=== PATIENT | male | born 1935 ===

== ENCOUNTER 2016-09-21 19:20 | Emergency (ER) | payer MEDICARE ==
[2016-09-21 19:21] VITALS: BMI 29.2
[2016-09-21 19:36] VITALS: BP 184/82; PULSE 68; RESP 18; TEMP 98.2; O2SAT 100
[2016-09-21] MEDS ORDERED: Iohexol 240 (50 ml) PO STA (20:57)
[2016-09-21] MEDS ORDERED: Sodium Chloride 0.9% 1,000 ML IV STA (20:58)
--- NOTE | 2016-09-21 21:09 | ED PDOC ---
HPI: Abdomen Time Seen by Provider: 09/21/16 20:45 Chief Complaint (Nursing): GI Problem Chief Complaint (Provider): abdominal pain/constipation History Per: Patient, Family (80 y/o male h/o DM/HTN/Pacemaker for arrythmia last year here with constipation x 3 days associated with lower abdominal pain. Denies any vomiting/fevers/chills. Has tried fleet enema without relief. Has h/o appendectomy/cholecystectomy/sx for gastric ulcer in past. ) Past Medical History Reviewed: Historical Data, Nursing Documentation, Vital Signs Vital Signs: Last Vital Signs Temp 98.2 F 09/21/16 19:32 Pulse 68 09/21/16 19:32 Resp 18 09/21/16 19:32 BP 184/82 H 09/21/16 19:32 Pulse Ox 100 09/22/16 02:26 - Medical History PMH: Anemia, Anxiety, Depression, Gastritis, HTN, Hypercholesterolemia Denies: Bronchitis, HIV, Chronic Kidney Disease - Surgical History Surgical History: Appendectomy, Cholecystectomy - Family History Family History: States: Unknown Family Hx - Home Medications Home Medications: Ambulatory Orders Medication Instructions Recorded Clonazepam [Klonopin] 2 mg PO DAILY 03/13/16 Olmesartan/Hydrochlorothiazide 03/13/16 [Benicar Hct 40-25 mg Tablet] [place]-3 Fatty Acids [[place]-3] 1 gm PO BID 03/13/16 Omeprazole 20 mg PO DAILY 03/13/16 metFORMIN [glucOPHAGE] 250 mg PO BID 03/13/16 Aspirin [Ecotrin] 81 mg PO DAILY #0 tabec 03/15/16 Docusate [Colace] 100 mg PO BID #20 cap 09/22/16 - Allergies Allergies/Adverse Reactions: Allergies Allergy/AdvReac Type Severity Reaction Status Date / Time No Known Allergies Allergy Verified 03/12/16 22:33 Review of Systems ROS Statement: Except As Marked, All Systems Reviewed And Found Negative Gastrointestinal: Positive for: Abdominal Pain Physical Exam - Reviewed Nursing Documentation Reviewed: Yes Vital Signs Reviewed: Yes - Physical Exam Appears: Positive for: Well, Non-toxic, No Acute Distress Head Exam: Positive for: ATRAUMATIC, NORMAL INSPECTION, NORMOCEPHALIC Skin: Positive for: Normal Color, Warm, DRY Eye Exam: Positive for: EOMI, Normal appearance, PERRL ENT: Positive for: Normal ENT Inspection Neck: Positive for: Normal, Painless ROM Cardiovascular/Chest: Positive for: Regular Rate, Rhythm Respiratory: Positive for: CNT, Normal Breath Sounds Gastrointestinal/Abdominal: Positive for: Normal Exam, Bowel Sounds ( hyperactive bowel sounds), Soft, Tenderness (right lower quadrant tenderness noted.) Back: Positive for: Normal Inspection Extremity: Positive for: Normal ROM Neurologic/Psych: Positive for: Alert, Oriented - Laboratory Results Result Diagrams: 09/21/16 23:56 09/21/16 22:55 - ECG O2 Sat by Pulse Oximetry: 100 - Progress ED Course And Treament: CT ABD/PELVIS: IMPRESSION: 1. There is a mild fecal impaction of the rectum measuring 6.5 x 6.2 CM. 2. Constipation. 3. No evidence for diverticulitis as clinically questioned. Thank you for allowing us to participate in the care of your patient. Dictated and Authenticated by: Steve Weldon MD Patient states he had BM in ED after CT scan and feels improved. Disposition - Clinical Impression Clinical Impression: Constipation - Patient ED Disposition Is Patient to be Admitted: No - Disposition Disposition: Routine/Home Disposition Time: 02:58 Condition: FAIR Prescriptions: Docusate [Colace] 100 mg PO BID #20 cap Instructions: Constipation (GEN), High Fiber Diet (ED) Print Language: [place]
[2016-09-21 22:35] LABS: URINE COLOR YELLOW (YELLOW)
[2016-09-21 22:36] LABS: GRANULAR CAST 1 /lpf (0-1); RBC URINE 1 /hpf (0-3); URINE BACTERIA FEW (<OCC); URINE BILIRUBIN NEGATIVE (NEGATIVE); URINE BLOOD NEGATIVE (NEGATIVE); URINE GLUCOSE (UA) NEGATIVE (Normal); URINE KETONE NEGATIVE (NEGATIVE); URINE LEUKOCYTE ESTERASE NEGATIVE Leu/uL (Negative); URINE PROTEIN 100 mg/dL (NEGATIVE); URINE UROBILINOGEN 0.2 mg/dL (0.2-1.0); WBC URINE 1 /hpf (0-5)
[2016-09-21 23:08] LABS: ALB/GLOB RATIO 1.1 (1.0-2.1); ALKALINE PHOSPHATASE 75 U/L (38-126); ALT/SGPT 64 U/L (21-72); AST/SGOT 52 U/L (17-59); BILIRUBIN,TOTAL 0.4 mg/dl (0.2-1.3); CALCIUM 9.4 mg/dL (8.4-10.2); CARBON DIOXIDE 20 mmol/L (22-30); CHLORIDE 108 mmol/L (98-107); GFR AFRICAN-AMERICAN > 60; GLUCOSE,RANDOM 100 mg/dL (75-110); LIPASE 42 U/L (23-300); POTASSIUM 4.9 MMOL/L (3.6-5.0); SODIUM 144 mmol/l (132-148); TOTAL PROTEIN 7.3 G/DL (6.3-8.2)
[2016-09-21 23:16] LABS: BLOOD UREA NITROGEN 24 mg/dl (9-20)
[2016-09-22 00:03] LABS: BASO # 0.1 K/uL (0.0-0.2); BASO % 1.1 % (0.0-2.0); EOS # 0.2 K/uL (0.0-0.7); EOS % 2.2 % (0.0-4.0); HEMATOCRIT 32.5 % (35.0-51.0); LYMPH # 2.3 K/uL (1.0-4.3); LYMPH % 26.3 % (20.0-40.0); MEAN CELL VOLUME 101.4 fl (80.0-94.0); MEAN CORPUSCULAR HEMOGLOBIN 33.5 pg (27.0-31.0); MEAN PLATELET VOLUME 9.2 fl (7.2-11.7); MONO # 0.8 K/uL (0.0-0.8); MONO % 9.4 % (0.0-10.0); NEUT # 5.2 K/uL (1.8-7.0); NRBC % 0.1 % (0.0-0.0); RED CELL DISTRIBUTION WIDTH 12.7 % (11.5-14.5); WHITE BLOOD COUNT 8.6 K/uL (4.8-10.8)
[2016-09-22] MEDS ORDERED: Sodium Chloride 0.9% 50 ML IV ONE (00:25)
[2016-09-22] MEDS ORDERED: Iohexol 300 100 ML IJ ONE (00:25)
--- NOTE | 2016-09-22 01:52 | CT ---
EXAM: CT Abdomen and Pelvis With Intravenous Contrast CLINICAL HISTORY: 80 years old, male; Pain; Abdominal pain; Generalized; Additional info: Abd pain/constipation R/O diverticulitis TECHNIQUE: Axial computed tomography images of the abdomen and pelvis with intravenous contrast. This CT exam was performed using one or more of the following dose reduction techniques: automated exposure control, adjustment of the mA and/or kV according to patient size, and/or use of iterative reconstruction technique. Coronal and sagittal reformatted images were created and reviewed. CONTRAST: 95 mL of [id number] administered intravenously. COMPARISON: No relevant prior studies available. FINDINGS: Lower thorax: There is minimal bibasilar atelectasis. Pacemaker leads are noted in the right heart. ABDOMEN: Liver: There are no focal liver lesions present. Gallbladder and bile ducts: Gallbladder is not visualized and is presumably surgically absent or decompressed. No ductal dilation. Pancreas: Pancreas is atrophic. No ductal dilation. Spleen: The spleen is normal. Adrenals: No adrenal masses identified. Kidneys and ureters: At the there are bilateral renal cysts, largest on the right measuring 7.5 CM. There is no evidence of hydronephrosis. Stomach and bowel: There is a mild fecal impaction of the rectum measuring 6.5 x 6.2 CM. The stomach is normal. Colonic constipation is present. There is no evidence of intestinal obstruction. Appendix: No findings to suggest acute appendicitis. PELVIS: Bladder: Bladder is decompressed. Reproductive: The prostate gland and seminal vesicles are normal. ABDOMEN and PELVIS: Intraperitoneal space: There is no evidence of free intraperitoneal fluid. There is no free intraperitoneal air. Bones/joints: There are mild degenerative changes present. There is mild diffuse osteopenia. No acute fracture. No dislocation. Soft tissues: Unremarkable. Vasculature: The aorta demonstrates mild atherosclerotic calcification. No abdominal aortic aneurysm. Lymph nodes: There is no evidence of lymphadenopathy. IMPRESSION: 1. There is a mild fecal impaction of the rectum measuring 6.5 x 6.2 CM. 2. Constipation. 3. No evidence for diverticulitis as clinically questioned.
== END 2016-09-22 03:33 | disposition home or self-care (01) ==
LOC: H.ER 19:20
DX: K59.00 Constipation, unspecified (principal); K56.41 Fecal impaction; R10.84 Generalized abdominal pain
CPT/HCPCS: 74177; 80053; 81003; 83690; 85025; 87086; 99283; J7040; Q9966; Q9967

== ENCOUNTER 2017-11-15 09:01 | Inpatient (IN) | payer MEDICARE ==
[2017-11-15 09:02] VITALS: BMI 29.2
--- NOTE | 2017-11-15 09:48 | ED PDOC ---
HPI: General Adult Time Seen by Provider: 11/15/17 09:18 Chief Complaint (Nursing): Abnormal Skin Integrity Chief Complaint (Provider): Wound check History Per: Patient, EMS History/Exam Limitations: no limitations Onset/Duration Of Symptoms: Days (yesterday) Current Symptoms Are (Timing): Still Present Additional Complaint(s): 82 year old male presented to the ED via EMS complaining of redness that started at the surgical site yesterday and bleeding from the wound which began today. Patient reports he had open heart surgery on September 14 at [facility] and returned home last week. He does not remember the surgeon's name at [facility]. PCP: dAithya Amaya Past Medical History Reviewed: Historical Data, Nursing Documentation, Vital Signs Vital Signs: Last Vital Signs Temp 99.1 F 11/16/17 16:30 Pulse 71 11/16/17 16:30 Resp 16 11/16/17 16:30 BP 158/61 H 11/16/17 16:30 Pulse Ox 94 L 11/16/17 16:30 - Medical History PMH: Anemia, Anxiety, Depression, Gastritis, HTN, Hypercholesterolemia Denies: Bronchitis, HIV, Chronic Kidney Disease - Surgical History Surgical History: Appendectomy, Cholecystectomy - Family History Family History: States: Unknown Family Hx - Home Medications Home Medications: Ambulatory Orders Medication Instructions Recorded Amiodarone [Cordarone] 200 mg PO DAILY 11/15/17 Apixaban [Eliquis] 2.5 mg PO Q12 11/15/17 Aspirin [Ecotrin] 81 mg PO DAILY 11/15/17 Atorvastatin [Lipitor] 40 mg PO HS 11/15/17 Docusate [Colace] 100 mg PO BID 11/15/17 Epoetin Sh[place]ham [Procrit] 40,000 unit SC WE 11/15/17 Ferrous Sulfate [Feosol] 325 mg PO DAILY 11/15/17 Melatonin 10 mg PO HS 11/15/17 Metoprolol Tartrate [Lopressor] 50 mg PO Q12 11/15/17 Multivitamin [Multi-Vitamin Daily] 1 tab PO DAILY 11/15/17 [place]-3 Fatty Acids/Fish Oil 2 gm PO BID 11/15/17 [[place]-3 1,000 mg Softgel] Omeprazole 20 mg PO DAILY 11/15/17 Sennosides A and B [Senokot Tab] 8.6 mg PO BID 11/15/17 diltiaZEM CD [Cardizem CD] 120 mg PO DAILY 11/15/17 Vancomycin 1 GM [Vancomycin 1GM in 1 gm IVPB Q12 #30 bag 11/16/17 Normal Saline Addvantage] - Allergies Allergies/Adverse Reactions: Allergies Allergy/AdvReac Type Severity Reaction Status Date / Time No Known Allergies Allergy Verified 11/15/17 09:11 Review of Systems ROS Statement: Except As Marked, All Systems Reviewed And Found Negative Constitutional: Negative for: Fever Skin: Positive for: Other (Redness and bleeding from surgical site) Physical Exam - Reviewed Nursing Documentation Reviewed: Yes Vital Signs Reviewed: Yes - Physical Exam Appears: Positive for: Non-toxic, No Acute Distress Head Exam: Positive for: ATRAUMATIC, NORMAL INSPECTION, NORMOCEPHALIC Skin: Positive for: Normal Color, Warm, Dry Eye Exam: Positive for: Normal appearance Neck: Positive for: Normal, Painless ROM Cardiovascular/Chest: Positive for: Regular Rate, Rhythm. Negative for: Murmur Respiratory: Positive for: Normal Breath Sounds. Negative for: Wheezing, Respiratory Distress Extremity: Positive for: Normal ROM Neurologic/Psych: Positive for: Alert, Oriented. Negative for: Motor/Sensory Deficits Comments: CHEST: Midline surgical scar on chest with surrounding erythema and induration. Upper part of incision had serous drainage. (+) tenderness to palpation. (- ) active bleeding, (-) purulent drainage, (-) fluctuance - Laboratory Results Result Diagrams: 11/16/17 05:35 11/16/17 05:35 - ECG O2 Sat by Pulse Oximetry: 100 (RA) Pulse Ox Interpretation: Normal Medical Decision Making Medical Decision Making: Initial Impression: incisional cellulitis Initial Plan: CT chest CMP CBC PTT Prothrombin time Vancomycin 1gm Sodium chloride 0.9% 250mL IV Blood culture Accession No. : [id number] Patient Name / ID : PETER VILLEDA / [id number] Exam Date : 11/15/2017 11:26:32 ( Approved ) Study Comment : Sex / Age : M / 82Y Creator : Rebecca Lane MD Dictator : Rebecca Lane MD [employer] Executive : Thread Drawer : Rebecca Lane MD Approver2 : Report Date : 11/15/2017 12:38:28 My Comment : PROCEDURE: CT Chest with contrast HISTORY: Wound infection, cardiac bypass incision COMPARISON: None. TECHNIQUE: Contiguous axial images were obtained through the chest with intravenous contrast enhancement. Sagittal and coronal reconstructions were performed. IV contrast: 95 cc Omnipaque 300 Radiation dose (DLP): 171.75 mGy-cm. This CT exam was performed using one or more of the following dose reduction techniques: Automated exposure control, adjustment of the mA and/or kV according to patient size, and/or use of iterative reconstruction technique. FINDINGS: LUNGS: There is compressive atelectasis in the posterior lungs related to large pleural effusions, worse on the left. No focal consolidation. There are no endobronchial lesions. MEDIASTINUM: The aorta is not dilated. The heart is normal in size. No large pericardial effusion. No pathologic mediastinal or hilar lymphadenopathy. PLEURA: There are large bilateral pleural effusions with compressive atelectasis in the posterior lungs, worse on the left. No pneumothorax. BONES: No fracture. No destructive lesion. Within normal limits for the patient's age. UPPER ABDOMEN: Grossly unremarkable. OTHER FINDINGS: There are postsurgical changes of median sternotomy. There is subcutaneous edema and minimal fluid in the soft tissues anterior to the sternum without evidence for drainable fluid collection. There is mild anasarca. IMPRESSION: 1. Postsurgical changes of median sternotomy, subcutaneous edema, post- operative/postsurgical soft tissue anterior to the sternum and minimal fluid anterior to the sternum without evidence for drainable fluid collection or abscess. These findings could 4 within the spectrum of postoperative/ postsurgical changes however cellulitis can have similar appearance in the appropriate clinical setting. 2. Large bilateral pleural effusions with compressive atelectasis in the lungs, worse on the left. 10:54 Upon reevaluation, patient reports having chest pain. EKG and troponin ordered. Scribe Attestation: Documented by Wolf Elizabeth acting as a scribe for Leeann Fleming MD. Provider Scribe Attestation: All medical record entries made by the Scribe were at my direction and personally dictated by me. I have reviewed the chart and agree that the record accurately reflects my personal performance of the history, physical exam, medical decision making, and the department course for this patient. I have also personally directed, reviewed, and agree with the discharge instructions and disposition. Disposition - Clinical Impression Clinical Impression: Cellulitis of chest wall, Chest pain - Disposition Disposition Time: 13:47 Condition: STABLE - Pt Status Changed To: Hospital Disposition Of: Inpatient - Admit Certification Admit to Inpatient:: After my assessment, the patient will require hospitalization for at least two midnights. This is because of the severity of symptoms shown, intensity of services needed, and/or the medical risk in this patient being treated as an outpatient. - POA Present On Arrival: Surgical Site Infection
[2017-11-15] MEDS ORDERED: Vancomycin 1 g Inj ONE (09:51)
[2017-11-15 10:44] LABS: BASO # 0.1 K/uL (0.0-0.2); BASO % 0.6 % (0.0-2.0); EOS % 0.2 % (0.0-4.0); HEMOGLOBIN 10.3 g/dL (12.0-18.0); LYMPH # 1.5 K/uL (1.0-4.3); LYMPH % 12.1 % (20.0-40.0); MEAN CORPUSCULAR HEMOGLOBIN 30.2 pg (27.0-31.0); MEAN CORPUSCULAR HGB CONC 31.4 g/dL (33.0-37.0); NEUT # 9.8 K/uL (1.8-7.0); NEUT % 79.1 % (50.0-75.0); RBC 3.42 Mil/uL (4.40-5.90); RED CELL DISTRIBUTION WIDTH 20.1 % (11.5-14.5); WHITE BLOOD COUNT 12.4 K/uL (4.8-10.8)
[2017-11-15 11:10] LABS: ALB/GLOB RATIO 0.8 (1.0-2.1); CALCIUM 8.4 mg/dL (8.4-10.2); GFR AFRICAN-AMERICAN > 60; GFR NON-AFRICAN AMERICAN > 60
[2017-11-15 11:11] LABS: ALT/SGPT 106 U/L (21-72); AST/SGOT 130 U/L (17-59); BLOOD UREA NITROGEN 24 mg/dl (9-20)
[2017-11-15 11:11] LABS: INR 1.6 (0.9-1.2); PARTIAL THROMBOPLASTIN TIME 30.6 Seconds (25.6-37.1); PROTHROMBIN TIME 18.4 Seconds (9.8-13.1)
[2017-11-15] MEDS ORDERED: Iohexol 300 100 ML IJ ONE (11:15)
[2017-11-15] MEDS ORDERED: Sodium Chloride 0.9% 50 ML IV ONE (11:15)
--- NOTE | 2017-11-15 12:40 | CT ---
PROCEDURE: CT Chest with contrast HISTORY: Wound infection, cardiac bypass incision COMPARISON: None. TECHNIQUE: Contiguous axial images were obtained through the chest with intravenous contrast enhancement. Sagittal and coronal reconstructions were performed. IV contrast: 95 cc Omnipaque 300 Radiation dose (DLP): 171.75 mGy-cm. This CT exam was performed using one or more of the following dose reduction techniques: Automated exposure control, adjustment of the mA and/or kV according to patient size, and/or use of iterative reconstruction technique. FINDINGS: LUNGS: There is compressive atelectasis in the posterior lungs related to large pleural effusions, worse on the left. No focal consolidation. There are no endobronchial lesions. MEDIASTINUM: The aorta is not dilated. The heart is normal in size. No large pericardial effusion. No pathologic mediastinal or hilar lymphadenopathy. PLEURA: There are large bilateral pleural effusions with compressive atelectasis in the posterior lungs, worse on the left. No pneumothorax. BONES: No fracture. No destructive lesion. Within normal limits for the patient's age. UPPER ABDOMEN: Grossly unremarkable. OTHER FINDINGS: There are postsurgical changes of median sternotomy. There is subcutaneous edema and minimal fluid in the soft tissues anterior to the sternum without evidence for drainable fluid collection. There is mild anasarca. IMPRESSION: 1. Postsurgical changes of median sternotomy, subcutaneous edema, post- operative/postsurgical soft tissue anterior to the sternum and minimal fluid anterior to the sternum without evidence for drainable fluid collection or abscess. These findings could 4 within the spectrum of postoperative/ postsurgical changes however cellulitis can have similar appearance in the appropriate clinical setting. 2. Large bilateral pleural effusions with compressive atelectasis in the lungs, worse on the left.
--- NOTE | 2017-11-15 15:38 | CP.PCM.HP ---
History of Present Illness - History of Present Illness History of Present Illness: 82 yo male with history of CAD, HTN, HLD, DM2, Anxiety and Gastric Ulcer had recent CABG done at [facility] 2months ago. Surgical wound has been healing well until 2 days ago when and patient noted redness and tenderness on the upper border of mid-sternal surgical wound followed with serous drainage. Patient also complained of mid-sternal pain radiating to both shoulders and arms and back. Denied fever but admitted having chills. Also denied SOB, nausea or vomiting. Present on Admission - Present on Admission Any Indicators Present on Admission: No History of DVT/PE: No History of Uncontrolled Diabetes: No Urinary Catheter: No Decubitus Ulcer Present: No Review of Systems - Review of Systems All systems: reviewed and no additional remarkable complaints except (aside from those mentioned above, 12 point system review were negative by me) Past Patient History - Infectious Disease Hx of Infectious Diseases: None - Tetanus Immunizations Tetanus Immunization: Unknown - Past Medical History & Family History Past Medical History?: Yes - Past Social History Smoking Status: Former Smoker Alcohol: None Drugs: Denies Home Situation {Lives}: With Family - CARDIAC Hx Hypercholesterolemia: Yes Hx Hypertension: Yes - PULMONARY Hx Bronchitis: No - NEUROLOGICAL Hx Neurological Disorder: No - HEENT Hx HEENT Problems: No - RENAL Hx Chronic Kidney Disease: No - ENDOCRINE/METABOLIC Hx Endocrine Disorders: Yes Hx Diabetes Mellitus Type 2: Yes - HEMATOLOGICAL/ONCOLOGICAL Hx Anemia: Yes Hx Human Immunodeficiency Virus (HIV): No - INTEGUMENTARY Hx Dermatological Problems: No - MUSCULOSKELETAL/RHEUMATOLOGICAL Hx Falls: Yes - GASTROINTESTINAL Hx Gastritis: Yes - GENITOURINARY/GYNECOLOGICAL Hx Genitourinary Disorders: No - PSYCHIATRIC Hx Anxiety: Yes Hx Depression: Yes - SURGICAL HISTORY Hx Appendectomy: Yes Hx Cholecystectomy: Yes - ANESTHESIA Hx Anesthesia: Yes Hx Anesthesia Reactions: No Hx Malignant Hyperthermia: No Meds Allergies/Adverse Reactions: Allergies Allergy/AdvReac Type Severity Reaction Status Date / Time No Known Allergies Allergy Verified 11/15/17 09:11 Physical Exam - Constitutional Appears: No Acute Distress - Head Exam Head Exam: ATRAUMATIC - Eye Exam Eye Exam: absent: Scleral icterus - ENT Exam ENT Exam: Mucous Membranes Moist - Neck Exam Neck exam: Negative for: Meningismus - Respiratory Exam Respiratory Exam: Chest Wall Tenderness (upper border of mid-sternal surgical wound sorrounded with redness plus bloody-serous drainage). absent: Rales, Rhonchi, Wheezes, Respiratory Distress - Cardiovascular Exam Cardiovascular Exam: REGULAR RHYTHM, +S1, +S2 - GI/Abdominal Exam GI & Abdominal Exam: Soft. absent: Tenderness - Rectal Exam Rectal Exam: Deferred - Extremities Exam Extremities exam: Negative for: calf tenderness, pedal edema - Back Exam Back exam: absent: tenderness - Neurological Exam Neurological exam: Alert, Oriented x3 - Psychiatric Exam Psychiatric exam: Normal Affect - Skin Skin Exam: Dry, Intact Results - Vital Signs Recent Vital Signs: Last Vital Signs Temp 98.1 F 11/15/17 14:10 Pulse 79 11/15/17 14:47 Resp 19 11/15/17 14:47 BP 145/84 11/15/17 14:47 Pulse Ox 96 11/15/17 14:47 - Labs Result Diagrams: 11/15/17 10:38 11/15/17 10:38 Labs: Laboratory Results - last 24 hr 11/15/17 11/15/17 11/15/17 10:38 10:38 10:45 WBC 12.4 H D RBC 3.42 L Hgb 10.3 L Hct 32.8 L MCV 96.0 H D MCH 30.2 MCHC 31.4 L RDW 20.1 H Plt Count 164 MPV 9.0 Neut % (Auto) 79.1 H Lymph % (Auto) 12.1 L [place] % (Auto) 8.0 Eos % (Auto) 0.2 Baso % (Auto) 0.6 Neut # (Auto) 9.8 H Lymph # (Auto) 1.5 [place] # (Auto) 1.0 H Eos # (Auto) 0.0 Baso # (Auto) 0.1 PT 18.4 H INR 1.6 H APTT 30.6 Sodium 136 Potassium 5.0 Chloride 104 Carbon Dioxide 23 Anion Gap 14 BUN 24 H Creatinine 0.9 Est GFR ( Amer) > 60 Est GFR (Non-Af Amer) > 60 Random Glucose 157 H Calcium 8.4 Total Bilirubin 0.9 AST 130 H D ALT 106 H D Alkaline Phosphatase 139 H Troponin I Total Protein 6.6 Albumin 3.0 L D Globulin 3.6 Albumin/Globulin Ratio 0.8 L 11/15/17 11:18 WBC RBC Hgb Hct MCV MCH MCHC RDW Plt Count MPV Neut % (Auto) Lymph % (Auto) [place] % (Auto) Eos % (Auto) Baso % (Auto) Neut # (Auto) Lymph # (Auto) [place] # (Auto) Eos # (Auto) Baso # (Auto) PT INR APTT Sodium Potassium Chloride Carbon Dioxide Anion Gap BUN Creatinine Est GFR ( Amer) Est GFR (Non-Af Amer) Random Glucose Calcium Total Bilirubin AST ALT Alkaline Phosphatase Troponin I 0.0120 Total Protein Albumin Globulin Albumin/Globulin Ratio Assessment & Plan - Assessment and Plan (Free Text) Assessment: 82 yo male with history of CAD, HTN, HLD, DM2, Anxiety and Gastric Ulcer had recent CABG done at [facility] 2months ago. Surgical wound has been healing well until 2 days ago when and patient noted redness and tenderness on the upper border of mid-sternal surgical wound followed with serous drainage. Patient also complained of mid-sternal pain radiating to both shoulders and arms and back. Denied fever but admitted having chills. Also denied SOB, nausea or vomiting. 1. Infected Surgical Wound blood and wound culture Vancomycin 1gm IV q 12hrs Zosyn 3.375gm IV q 6hrs Vanco trough on 4th day 2. CAD continue ASA, statin and BB 3. HTN BP stable continue Cardizem and Metoprolol 4. DM2 BS relatively controlled without medication accuchek ACHS with low Lispro coverage HgA1C, BMP in am 5. DVt prophylaxis patient on Eliquis
[2017-11-15] MEDS ORDERED: [UNRECOGNIZED DRUG - OTHER] PO SCH (17:00)
[2017-11-15] MEDS ORDERED: OMEGA 3 FATTY ACIDS PO SCH (17:00)
--- NOTE | 2017-11-15 17:05 | CARD ---
APPROVED REPORT EKG Measurement Heart [id number] <Conclusion> Normal sinus rhythm Low voltage QRS Possible Inferior infarct, age undetermined Abnormal ECG
[2017-11-15] MEDS ORDERED: Pneumococcal 23-Valent Vaccine IM ONE (21:00)
[2017-11-16 06:47] LABS: BASO % 0.3 % (0.0-2.0); EOS # 0.1 K/uL (0.0-0.7); EOS % 0.6 % (0.0-4.0); HEMOGLOBIN 9.9 g/dL (12.0-18.0); LYMPH # 1.4 K/uL (1.0-4.3); MEAN CELL VOLUME 95.2 fl (80.0-94.0); MEAN CORPUSCULAR HEMOGLOBIN 30.4 pg (27.0-31.0); MEAN CORPUSCULAR HGB CONC 31.9 g/dL (33.0-37.0); MEAN PLATELET VOLUME 8.8 fl (7.2-11.7); MONO # 1.3 K/uL (0.0-0.8); MONO % 9.7 % (0.0-10.0); NEUT # 10.7 K/uL (1.8-7.0); NEUT % 79.4 % (50.0-75.0); RBC 3.27 Mil/uL (4.40-5.90); RED CELL DISTRIBUTION WIDTH 19.6 % (11.5-14.5); WHITE BLOOD COUNT 13.5 K/uL (4.8-10.8)
[2017-11-16 07:06] LABS: BLOOD UREA NITROGEN 23 mg/dl (9-20); CALCIUM 8.4 mg/dL (8.4-10.2); GFR AFRICAN-AMERICAN > 60; GFR NON-AFRICAN AMERICAN > 60; HDL CHOLESTEROL 24 MG/DL (30-70)
[2017-11-16 07:17] LABS: LDL CHOLESTEROL < 30 mg/dL (0-129)
[2017-11-16] MEDS: Omega-3-Acid Ethyl Esters 1 GM Cap PO SCH ×2 (08:47→16:33)
[2017-11-16] MEDS ORDERED: Multivitamin Vitamin B Complex (Nephro-Vite) Tab PO SCH (09:00)
[2017-11-16] MEDS ORDERED: diltiaZEM 120 mg/24 Hours CD Cap PO SCH (09:00)
[2017-11-16] MEDS ORDERED: Pantoprazole 40 mg EC Tab PO SCH (09:00)
[2017-11-16] MEDS ORDERED: Patient's Own Med (Multivitamin [Multi-Vitamin Daily] 1 TAB) PO SCH (09:00)
--- NOTE | 2017-11-16 09:47 | CP.PCM.PN ---
Subjective - Date & Time of Evaluation Date of Evaluation: 11/16/17 Time of Evaluation: 09:30 - Subjective Subjective: Patient seen and examined bedside. Feeling a little better. Still with pain midsternal area. Tmax 100.3 last 24 hours BP elevated 170 /71 WBC 13 K Blood cx positive for gram positive cocci in clusters Objective - Vital Signs/Intake and Output Vital Signs (last 24 hours): Temp Pulse Resp BP Pulse Ox 98.9 F 80 18 170/71 H 95 11/16/17 08:02 11/16/17 08:48 11/16/17 08:02 11/16/17 08:48 11/16/17 08:02 - Medications Medications: Current Medications Amiodarone HCl (Cordarone) 200 mg PO DAILY [facility] Apixaban (Eliquis) 2.5 mg PO Q12 [facility] PRN Reason: Protocol Last Admin: 11/16/17 08:48 Dose: 2.5 mg Aspirin (Ecotrin) 81 mg PO DAILY [facility] Last Admin: 11/16/17 08:48 Dose: 81 mg Atorvastatin Calcium (Lipitor) 40 mg PO [facility] Last Admin: 11/15/17 21:18 Dose: 40 mg Diltiazem HCl (Cardizem Cd) 120 mg PO DAILY [facility] Last Admin: 11/16/17 08:48 Dose: 120 mg Docusate Sodium (Colace) 100 mg PO BID [facility] Last Admin: 11/16/17 08:49 Dose: 100 mg Epoetin Shubham (Procrit) 40,000 unit SC [facility] Ferrous Sulfate (Feosol) 325 mg PO DAILY [facility] Last Admin: 11/16/17 08:48 Dose: 325 mg Home Med (Melatonin [Melatonin]) 10 mg PO [facility] Vancomycin HCl 1 gm/ Sodium (Chloride) 250 mls @ 166.667 mls/hr IVPB Q12 [facility] PRN Reason: Protocol Last Admin: 11/16/17 09:00 Dose: 166.667 mls/hr Metoprolol Tartrate (Lopressor) 50 mg PO Q12 [facility] Last Admin: 11/16/17 08:48 Dose: 50 mg [id number] Ethyl Esters (Lovaza) 2 gm PO BID [facility] Last Admin: 11/16/17 08:47 Dose: 2 gm Pantoprazole Sodium (Protonix Ec Tab) 40 mg PO DAILY [facility] Last Admin: 11/16/17 08:47 Dose: 40 mg Temazepam (Restoril) 15 mg PO HS PRN PRN Reason: Insomnia Last Admin: 11/16/17 00:02 Dose: 15 mg Vitamin B Complex/Vit C/Folic Acid (Nephro-Brian) 1 tab PO DAILY [facility] Last Admin: 11/16/17 08:47 Dose: 1 tab - Labs Labs: 11/16/17 05:35 11/16/17 05:35 PT 18.4 Seconds (9.8-13.1) H 11/15/17 10:45 INR 1.6 (0.9-1.2) H 11/15/17 10:45 APTT 30.6 Seconds (25.6-37.1) 11/15/17 10:45 - Constitutional Appears: Non-toxic, No Acute Distress - Head Exam Head Exam: ATRAUMATIC, NORMOCEPHALIC - Eye Exam Eye Exam: EOMI, PERRL Pupil Exam: NORMAL ACCOMODATION - ENT Exam ENT Exam: Mucous Membranes Moist, Normal Exam - Neck Exam Neck Exam: Full ROM, Normal Inspection - Respiratory Exam Respiratory Exam: Decreased Breath Sounds (bibasilar ), Clear to Ausculation Bilateral, NORMAL BREATHING PATTERN. absent: Rales, Rhonchi, Wheezes - Cardiovascular Exam Cardiovascular Exam: REGULAR RHYTHM, RRR, +S1, +S2. absent: JVD - GI/Abdominal Exam GI & Abdominal Exam: Soft, Normal Bowel Sounds. absent: Distended, Guarding, Tenderness, Rebound - Rectal Exam Rectal Exam: Deferred - Extremities Exam Extremities Exam: Full ROM, Normal Capillary Refill, Normal Inspection. absent : Calf Tenderness, Pedal Edema - Back Exam Back Exam: NORMAL INSPECTION - Neurological Exam Neurological Exam: Alert, Awake, CN II-XII Intact, Oriented x3 - Psychiatric Exam Psychiatric exam: Normal Affect, Normal Mood - Skin Skin Exam: Dry Additional comments: mid sternum small opening and large erythema 10 x 10 cm no fluctuation , no drainage Assessment and Plan - Assessment and Plan (Free Text) Assessment: 82 yo male with history of CAD, HTN, HLD, DM2, Anxiety and Gastric Ulcer had recent CABG done at [facility] 2months ago. Surgical wound has been healing well until 2 days ago when and patient noted redness and tenderness on the upper border of mid-sternal surgical wound followed with serous drainage. Patient also complained of mid-sternal pain radiating to both shoulders and arms and back. Denied fever but admitted having chills. Also denied SOB, nausea or vomiting. Patient admitted for Infected surgical wound , started on Vanco IVand cultures were sent 1. Infected Surgical Wound with bacteremia blood cx positive for gram positive cocci in clusters Continue Vancomycin 1gm IV q 12hrs Echo ordered call ID and cardiology cosnult patient does not remember surgeons name Ct chest showed no collection 2. CAD/ s/p CABG continue ASA, statin and BB 3. HTN BP labile continue Cardizem and Metoprolol 4. DM2 BS relatively controlled without medication accuchek ACHS with low Lispro coverage HgA1C 5. Anemia of chronic disease Hgb 9.9 send anemia work up 6. Paroxysmal Afib back in SR Continue Amiodarone, cardizem and eliquis check TSH 7. Transaminitis LFT-s mildly elevated possible medication side effect ? monitor for now 8. DVt prophylaxis patient on Eliquis
--- NOTE | 2017-11-16 11:21 | CARD ---
APPROVED REPORT EXAM: Two-dimensional and M-mode echocardiogram with Doppler and color Doppler. Other Information Quality : AverageRhythm : NSR INDICATION Infection:Subacute bacterial endocarditis Surgery/Intervention Status/Post Aortic Valve Replacement: Date: 09/26 ICD/Pacemaker: CABG: Date: 09/26 2D DIMENSIONS IVSd1.19 (0.7-1.1cm)LVDd4.22 (3.9-5.9cm) PWd1.04 (0.7-1.1cm)IVSs1.32 (0.8-1.2cm) LVDs2.96 (2.5-4.0cm)FS (%) 29.7 % PWs1.20 (0.8-1.2cm)LVEF (%)55.0 (>50%) M-Mode DIMENSIONS Left Atrium (MM)2.98 (2.5-4.0cm)IVSd0.94 (0.7-1.1cm) Aortic Root3.20 (2.2-3.7cm)LVDd4.85 (4.0-5.6cm) PWd0.83 (0.7-1.1cm)IVSs1.38 cm FS (%) 27 %LVDs3.56 (2.0-3.8cm) PWs1.16 cm Mitral Valve MV E Gnvdjzqd777.1cm/sMV DECEL [id number] A Uihbwhvw96.7cm/s MV AHX82qdS/A ratio2.0MVA (PHT)4.21cm2 TDI Lateral E' Peak V4.97cm/sMedial E' Peak V10.59cm/sE/Lateral E'23.4 E/Medial E'11.0 Pulmonary Valve PV Peak Pecphhsr464.9cm/s Tricuspid Valve TR Peak Gdcpiuyf849nb/sRAP PRZKCFUZ77mnUuUV Peak Gr.15mmHg [id number] LEFT VENTRICLE The left ventricle is normal size. There is normal left ventricular wall thickness. The left ventricular ejection fraction is within the normal range. Apical motion consistent with pacemaker activation. Transmitral Doppler flow pattern is Grade II-pseudonormal filling dynamics. RIGHT VENTRICLE The right ventricle is normal size. There is normal right ventricular wall thickness. The right ventricular systolic function is normal. There is a pacemaker lead in the right ventricle. ATRIA The left atrium size is normal. The right atrium size is normal. AORTIC VALVE The aortic valve is not well visualized. There is trace aortic regurgitation. There is no aortic valvular stenosis. MITRAL VALVE The mitral valve is mildly thickened. There is no mitral valve stenosis. Mitral regurgitation is mild. TRICUSPID VALVE The tricuspid valve is normal in structure. There is mild tricuspid regurgitation. PULMONIC VALVE The pulmonary valve is normal in structure. There is mild pulmonic valvular regurgitation. GREAT VESSELS The aortic root displays moderate sclerocalcific changes of the aortic The IVC was not visualized. PERICARDIAL EFFUSION The pericardium appears normal. <Conclusion> The left ventricle is normal size. There is normal left ventricular wall thickness. The left ventricular ejection fraction is within the normal range. Apical motion consistent with pacemaker activation. Transmitral Doppler flow pattern is Grade II-pseudonormal filling dynamics. The aortic valve is not well visualized. Mitral regurgitation is mild. There is mild tricuspid regurgitation. There is mild pulmonic valvular regurgitation. No definite vegitation noted, Consider GEORGE if clincally warrentd
[2017-11-16 11:39] LABS: HDL CHOLESTEROL 24 MG/DL (30-70); IRON 17 ug/dL (49-181)
[2017-11-16 11:49] LABS: % IRON SATURATION 9 % (20-55); TOTAL IRON BINDING CAPACITY 187 ug/dL (250-450)
[2017-11-16 12:08] LABS: LDL CHOLESTEROL < 30 mg/dL (0-129)
[2017-11-16 12:18] VITALS: PULSE 71
--- NOTE | 2017-11-16 12:28 | CP.PCM.CON ---
History of Present Illness - History of Present Illness History of Present Illness: 82 yo male s/p CABG AVR tissue valve, PPM with sternal wound infection gram+ cocci blood culture. Low grade fever Past Patient History - Infectious Disease Hx of Infectious Diseases: None - Tetanus Immunizations Tetanus Immunization: Unknown - Past Medical History & Family History Past Medical History?: Yes - Past Social History Smoking Status: Former Smoker - CARDIAC Hx Cardiac Disorders: Yes Hx Atrial Fibrillation: Yes Hx Heart Attack: Yes Hx Hypercholesterolemia: Yes Hx Hypertension: Yes - PULMONARY Hx Bronchitis: No - NEUROLOGICAL Hx Neurological Disorder: No - HEENT Hx HEENT Problems: No - RENAL Hx Chronic Kidney Disease: No - ENDOCRINE/METABOLIC Hx Endocrine Disorders: Yes Hx Diabetes Mellitus Type 2: Yes - HEMATOLOGICAL/ONCOLOGICAL Hx Anemia: Yes Hx Human Immunodeficiency Virus (HIV): No - INTEGUMENTARY Hx Dermatological Problems: No - MUSCULOSKELETAL/RHEUMATOLOGICAL Hx Falls: Yes - GASTROINTESTINAL Hx Gastritis: Yes - GENITOURINARY/GYNECOLOGICAL Hx Genitourinary Disorders: No - PSYCHIATRIC Hx Anxiety: Yes Hx Depression: Yes Hx Substance Use: No - SURGICAL HISTORY Hx Appendectomy: Yes Hx Cholecystectomy: Yes Hx Open Heart Surgery: Yes - ANESTHESIA Hx Anesthesia: Yes Hx Anesthesia Reactions: No Hx Malignant Hyperthermia: No Has any member of the family had a problem w/ anesthesia?: No Meds Allergies/Adverse Reactions: Allergies Allergy/AdvReac Type Severity Reaction Status Date / Time No Known Allergies Allergy Verified 11/15/17 09:11 - Medications Medications: Current Medications Amiodarone HCl (Cordarone) 200 mg PO DAILY [facility] Last Admin: 11/16/17 10:18 Dose: 200 mg Apixaban (Eliquis) 2.5 mg PO Q12 [facility]S [facility] PRN Reason: Protocol Last Admin: 11/16/17 08:48 Dose: 2.5 mg Aspirin (Ecotrin) 81 mg PO DAILY [facility] 234 [facility]S [facility] Last Admin: 11/16/17 08:48 Dose: 81 mg Atorvastatin Calcium (Lipitor) 40 mg PO HS [facility] 234 B[facility]S [facility] Last Admin: 11/15/17 21:18 Dose: 40 mg Diltiazem HCl (Cardizem Cd) 120 mg PO DAILY [facility] 234 [facility]S [facility] Last Admin: 11/16/17 08:48 Dose: 120 mg Docusate Sodium (Colace) 100 mg PO BID [facility] 234 [facility]S [facility] Last Admin: 11/16/17 08:49 Dose: 100 mg Epoetin Shubham (Procrit) 40,000 unit SC [facility] Ferrous Sulfate (Feosol) 325 mg PO DAILY [facility] 234 B[facility]S [facility] Last Admin: 11/16/17 08:48 Dose: 325 mg Home Med (Melatonin [Melatonin]) 10 mg PO HS [facility] 234 B[facility]S [facility] Vancomycin HCl 1 gm/ Sodium (Chloride) 250 mls @ 166.667 mls/hr IVPB Q12 [facility] PRN Reason: Protocol Last Admin: 11/16/17 09:00 Dose: 166.667 mls/hr Metoprolol Tartrate (Lopressor) 50 mg PO Q12 [facility]S [facility] Last Admin: 11/16/17 08:48 Dose: 50 mg Dsrgi-7-Lumg Ethyl Esters (Lovaza) 2 gm PO BID [facility] 234 B[facility]S [facility] Last Admin: 11/16/17 08:47 Dose: 2 gm Pantoprazole Sodium (Protonix Ec Tab) 40 mg PO DAILY [facility] 234 [facility]S [facility] Last Admin: 11/16/17 08:47 Dose: 40 mg Temazepam (Restoril) 15 mg PO HS PRN PRN Reason: Insomnia Last Admin: 11/16/17 00:02 Dose: 15 mg Vitamin B Complex/Vit C/Folic Acid (Nephro-Brian) 1 tab PO DAILY [facility] 234 B[facility]S [facility] Last Admin: 11/16/17 08:47 Dose: 1 tab Physical Exam - ENT Exam ENT Exam: Mucous Membranes Moist - Neck Exam Neck exam: Positive for: Normal Inspection - Respiratory Exam Respiratory Exam: Decreased Breath Sounds - Cardiovascular Exam Cardiovascular Exam: REGULAR RHYTHM - GI/Abdominal Exam GI & Abdominal Exam: Normal Bowel Sounds - Extremities Exam Extremities exam: Positive for: normal inspection Results - Vital Signs Recent Vital Signs: Last Vital Signs Temp 97.8 F 11/16/17 12:18 Pulse 71 11/16/17 12:18 Resp 18 11/16/17 12:18 BP 154/72 H 11/16/17 12:18 Pulse Ox 96 11/16/17 12:18 - Labs Result Diagrams: 11/16/17 05:35 11/16/17 05:35 Labs: Laboratory Results - last 24 hr 11/15/17 11/15/17 11/16/17 19:36 21:13 05:35 WBC RBC Hgb Hct MCV MCH MCHC RDW Plt Count MPV Neut % (Auto) Lymph % (Auto) [place] % (Auto) Eos % (Auto) Baso % (Auto) Neut # (Auto) Lymph # (Auto) [place] # (Auto) Eos # (Auto) Baso # (Auto) Retic Count Sodium 135 Potassium 4.4 Chloride 103 Carbon Dioxide 23 Anion Gap 13 BUN 23 H Creatinine 1.1 Est GFR ( Amer) > 60 Est GFR (Non-Af Amer) > 60 POC Glucose (mg/dL) 173 H Random Glucose 141 H Calcium 8.4 Iron TIBC % Saturation Troponin I 0.0210 0.0230 Triglycerides 64 D Cholesterol 83 LDL Cholesterol Direct < 30 HDL Cholesterol 24 L Vitamin B12 TSH 3rd Generation 11/16/17 11/16/17 11/16/17 05:35 05:35 10:10 WBC 13.5 H RBC 3.27 L Hgb 9.9 L Hct 31.1 L MCV 95.2 H MCH 30.4 MCHC 31.9 L RDW 19.6 H Plt Count 167 MPV 8.8 Neut % (Auto) 79.4 H Lymph % (Auto) 10.0 L [place] % (Auto) 9.7 Eos % (Auto) 0.6 Baso % (Auto) 0.3 Neut # (Auto) 10.7 H Lymph # (Auto) 1.4 [place] # (Auto) 1.3 H Eos # (Auto) 0.1 Baso # (Auto) 0.0 Retic Count 1.2 Sodium Potassium Chloride Carbon Dioxide Anion Gap BUN Creatinine Est GFR ( Amer) Est GFR (Non-Af Amer) POC Glucose (mg/dL) 145 H Random Glucose Calcium Iron TIBC % Saturation Troponin I Triglycerides Cholesterol LDL Cholesterol Direct HDL Cholesterol Vitamin B12 TSH 3rd Generation 11/16/17 11/16/17 11/16/17 10:10 11:03 11:23 WBC RBC Hgb Hct MCV MCH MCHC RDW Plt Count MPV Neut % (Auto) Lymph % (Auto) [place] % (Auto) Eos % (Auto) Baso % (Auto) Neut # (Auto) Lymph # (Auto) [place] # (Auto) Eos # (Auto) Baso # (Auto) Retic Count Sodium Potassium Chloride Carbon Dioxide Anion Gap BUN Creatinine Est GFR ( Amer) Est GFR (Non-Af Amer) POC Glucose (mg/dL) 183 H Random Glucose Calcium Iron 17 L TIBC 187 L % Saturation 9 L Troponin I Triglycerides Cholesterol LDL Cholesterol Direct HDL Cholesterol Vitamin B12 985 H TSH 3rd Generation 11/16/17 11:23 WBC RBC Hgb Hct MCV MCH MCHC RDW Plt Count MPV Neut % (Auto) Lymph % (Auto) [place] % (Auto) Eos % (Auto) Baso % (Auto) Neut # (Auto) Lymph # (Auto) [place] # (Auto) Eos # (Auto) Baso # (Auto) Retic Count Sodium Potassium Chloride Carbon Dioxide Anion Gap BUN Creatinine Est GFR ( Amer) Est GFR (Non-Af Amer) POC Glucose (mg/dL) Random Glucose Calcium Iron TIBC % Saturation Troponin I Triglycerides 63 Cholesterol 83 LDL Cholesterol Direct < 30 HDL Cholesterol 24 L Vitamin B12 TSH 3rd Generation 1.60 Assessment & Plan - Assessment and Plan (Free Text) Assessment: Sternal wound infection + blood culture Will need transfer to [facility] for further evaluation of sternal wound, possible exploration Concern regarding Endocarditis, Pacemaker infection Discussed with Dr.Omar Guerra whom will arrange transfer [id number]
--- NOTE | 2017-11-16 12:55 | CP.PCM.CON ---
History of Present Illness - History of Present Illness History of Present Illness: 82 yo male with history of CAD, HTN, HLD, DM2, Anxiety and Gastric Ulcer had CABG / AVR done at [facility] 2months ago. Surgical wound has been healing well until 2 days ago when and patient noted redness and tenderness on the upper border of mid-sternal surgical wound followed with serous drainage. Patient also complained of mid-sternal pain radiating to both shoulders and arms and back. Denied fever but admitted having chills. Also denied SOB, nausea or vomiting. BLOOD CULTURES AND WOUND CULTURES SHOW GRAM POSITIVE COCCI IN CLUSTERS PATIENT HAS PPM AND AVR Review of Systems - Review of Systems All systems: reviewed and no additional remarkable complaints except - Constitutional Constitutional: As Per HPI, Anorexia, Chills - EENT Eyes: absent: As Per HPI, Blind Spots, Blurred Vision, Change in Vision, Decreased Night Vision, Diplopia, Discharge, Dry Eye, Exophthalmos, Floaters, Irritation, Itchy Eyes, Loss of Peripheral Vision, Pain, Photophobia, Requires Corrective Lenses, Sees Flashes, Spots in Vision, Tunnel Vision, Other Visual Disturbances, Loss of Vision, Other Ears: absent: As Per HPI, Decreased Hearing, Ear Discharge, Ear Pain, Tinnitus, Abnormal Hearing, Disequilibrium, Dizziness, Other Nose/Mouth/Throat: absent: As Per HPI, Epistaxis, Nasal Congestion, Nasal Discharge, Nasal Obstruction, Nasal Trauma, Nose Pain, Post Nasal Drip, Sinus Pain, Sinus Pressure, Bleeding Gums, Change in Voice, Dental Pain, Dry Mouth, Dysphagia, Halitosis, Hoarsness, Lip Swelling, Mouth Lesions, Mouth Pain, Odynophagia, Sore Throat, Throat Swelling, Tongue Swelling, Facial Pain, Neck Pain, Neck Mass, Other - Cardiovascular Cardiovascular: absent: As Per HPI, Acrocyanosis, Chest Pain, Chest Pain at Rest , Chest Pain with Activity, Claudication, Diaphoresis, Dyspnea, Dyspnea on Exertion, Edema, Irregular Heart Rhythm, Pain Radiating to Arm/Neck/Jaw, Leg Edema, Leg Ulcers, Lightheadedness, Orthopnea, Palpitations, Paroxysmal Nocturnal Dyspnea, Pedal Edema, Radiating Pain, Rapid Heart Rate, Slow Heart Rate, Syncope, Other - Respiratory Respiratory: absent: As Per HPI, Cough, Dyspnea, Hemoptysis, Dyspnea on Exertion , Wheezing, Snoring, Stridor, Pain on Inspiration, Chest Congestion, Excessive Mucous Production, Change in Mucous Color, Pain with Coughing, Other - Gastrointestinal Gastrointestinal: absent: As Per HPI, Abdominal Pain, Belching, Bloating, Change in Bowel Habits, Change in Stool Character, Coffee Ground Emesis, Constipation, Cramping, Diarrhea, Dyspepsia, Dysphagia, Early Satiety, Excessive Flatus, Fecal Incontinence, Heartburn, Hematemesis, Hematochezia, Loose Stools, Melena, Nausea, Odynophagia, Temesmus, Vomiting, Other - Genitourinary Genitourinary: absent: As Per HPI, Change in Urinary Stream, Difficulty Urinating, Dysuria, Flank Pain, Hematuria, Pyuria, Nocturia, Urinary Incontinence, Urinary Frequency, Urinary Hesitance, Urinary Urgency, Voiding Freq/Small Amts, Freq UTI, Hx Renal/Bladder Calculi, Hx /Renal Surgery, Bladder Distension, Other - Musculoskeletal Musculoskeletal: As Per HPI - Integumentary Integumentary: As Per HPI, Skin Pain, Wounds - Neurological Neurological: absent: As Per HPI, Abnormal Gait, Abnormal Hearing, Abnormal Movements, Abnormal Speech, Behavioral Changes, Burning Sensations, Confusion, Convulsions, Disequilibrium, Dizziness, Numbness, Focal Weakness, Frequent Falls , Headaches, Lack of Coordination, Loss of Vision, Memory Loss, Paresthesias, Radicular Pain, Restless Legs, Sensory Deficit, Syncope, Tingling, Tremor, Vertigo, Weakness, Other Visual Disturbances, Other - Psychiatric Psychiatric: absent: As Per HPI, Abnormal Sleep Pattern, Anhedonia, Anxiety, Auditory Hallucinations, Behavioral Changes, Change in Appetite, Change in Libido, Confusion, Depression, Difficulty Concentrating, Hallucinations, Homicidal Ideation, Hopelessness, Irritability, Memory Loss, Mood Swings, Panic Attacks, Paranoia, Suicidal Ideation, Visual Hallucinations, Tactile Hallucinations, Other - Endocrine Endocrine: absent: As Per HPI, Change in Body Appearance, Change in Libido, Cold Intolorance, Deepening of Voice, Excessive Sweating, Fatigue, Flushing, Heat Intolorance, Increase in Ring/Shoe/Hat Size, Palpitations, Polydipsia, Polyphagia, Polyuria, Other - Hematologic/Lymphatic Hematologic: absent: As Per HPI, Easy Bleeding, Easy Bruising, Lymphadenopathy, Other Past Patient History - Infectious Disease Hx of Infectious Diseases: None - Tetanus Immunizations Tetanus Immunization: Unknown - Past Medical History & Family History Past Medical History?: Yes - Past Social History Smoking Status: Former Smoker - CARDIAC Hx Cardiac Disorders: Yes Hx Atrial Fibrillation: Yes Hx Heart Attack: Yes Hx Hypercholesterolemia: Yes Hx Hypertension: Yes - PULMONARY Hx Bronchitis: No - NEUROLOGICAL Hx Neurological Disorder: No - HEENT Hx HEENT Problems: No - RENAL Hx Chronic Kidney Disease: No - ENDOCRINE/METABOLIC Hx Endocrine Disorders: Yes Hx Diabetes Mellitus Type 2: Yes - HEMATOLOGICAL/ONCOLOGICAL Hx Anemia: Yes Hx Human Immunodeficiency Virus (HIV): No - INTEGUMENTARY Hx Dermatological Problems: No - MUSCULOSKELETAL/RHEUMATOLOGICAL Hx Falls: Yes - GASTROINTESTINAL Hx Gastritis: Yes - GENITOURINARY/GYNECOLOGICAL Hx Genitourinary Disorders: No - PSYCHIATRIC Hx Anxiety: Yes Hx Depression: Yes Hx Substance Use: No - SURGICAL HISTORY Hx Appendectomy: Yes Hx Cholecystectomy: Yes Hx Open Heart Surgery: Yes - ANESTHESIA Hx Anesthesia: Yes Hx Anesthesia Reactions: No Hx Malignant Hyperthermia: No Has any member of the family had a problem w/ anesthesia?: No Meds Allergies/Adverse Reactions: Allergies Allergy/AdvReac Type Severity Reaction Status Date / Time No Known Allergies Allergy Verified 11/15/17 09:11 - Medications Medications: Current Medications Amiodarone HCl (Cordarone) 200 mg PO DAILY [facility] Last Admin: 11/16/17 10:18 Dose: 200 mg Apixaban (Eliquis) 2.5 mg PO Q12 [facility] PRN Reason: Protocol Last Admin: 11/16/17 08:48 Dose: 2.5 mg Aspirin (Ecotrin) 81 mg PO DAILY [facility] Last Admin: 11/16/17 08:48 Dose: 81 mg Atorvastatin Calcium (Lipitor) 40 mg PO HS [facility] Last Admin: 11/15/17 21:18 Dose: 40 mg Diltiazem HCl (Cardizem Cd) 120 mg PO DAILY [facility] Last Admin: 11/16/17 08:48 Dose: 120 mg Docusate Sodium (Colace) 100 mg PO BID [facility] Last Admin: 11/16/17 08:49 Dose: 100 mg Epoetin Shubham (Procrit) 40,000 unit SC [facility] Ferrous Sulfate (Feosol) 325 mg PO DAILY [facility] Last Admin: 11/16/17 08:48 Dose: 325 mg Home Med (Melatonin [Melatonin]) 10 mg PO [facility] Vancomycin HCl 1 gm/ Sodium (Chloride) 250 mls @ 166.667 mls/hr IVPB Q12 [id number] PRN Reason: Protocol Last Admin: 11/16/17 09:00 Dose: 166.667 mls/hr Metoprolol Tartrate (Lopressor) 50 mg PO Q12 [facility] Last Admin: 11/16/17 08:48 Dose: 50 mg [id number] Ethyl Esters (Lovaza) 2 gm PO BID [facility] Last Admin: 11/16/17 08:47 Dose: 2 gm Pantoprazole Sodium (Protonix Ec Tab) 40 mg PO DAILY [facility] Last Admin: 11/16/17 08:47 Dose: 40 mg Temazepam (Restoril) 15 mg PO HS PRN PRN Reason: Insomnia Last Admin: 11/16/17 00:02 Dose: 15 mg Vitamin B Complex/Vit C/Folic Acid (Nephro-Brian) 1 tab PO DAILY [facility] Last Admin: 11/16/17 08:47 Dose: 1 tab Physical Exam - Constitutional Appears: Non-toxic, Chronically Ill - Head Exam Head Exam: NORMOCEPHALIC - Eye Exam Eye Exam: PERRL. absent: Scleral icterus - ENT Exam ENT Exam: Mucous Membranes Dry, Normal External Ear Exam - Neck Exam Neck exam: Negative for: Lymphadenopathy - Respiratory Exam Respiratory Exam: Decreased Breath Sounds, Clear to Auscultation Bilateral - Cardiovascular Exam Cardiovascular Exam: REGULAR RHYTHM, +S1, +S2, Systolic Murmur - GI/Abdominal Exam GI & Abdominal Exam: Diminished Bowel Sounds, Soft. absent: Guarding, Rebound, Rigid, Tenderness - Rectal Exam Rectal Exam: Deferred - Exam Exam: NORMAL INSPECTION - Extremities Exam Extremities exam: Positive for: pedal pulses present. Negative for: calf tenderness, pedal edema, tenderness - Back Exam Back exam: absent: CVA tenderness (L), CVA tenderness (R) - Neurological Exam Neurological exam: Alert, CN II-XII Intact, Oriented x3, Reflexes Normal - Psychiatric Exam Psychiatric exam: Normal Mood - Skin Skin Exam: Dry, Erythema Additional comments: REDNESS AROUND SUPERIOR 2/3 OF STERNOTOMY Results - Vital Signs Recent Vital Signs: Last Vital Signs Temp 97.8 F 11/16/17 12:18 Pulse 71 11/16/17 12:18 Resp 18 11/16/17 12:18 BP 154/72 H 06/08/18 12:18 Pulse Ox 96 11/16/17 12:18 - Labs Result Diagrams: 11/16/17 05:35 11/16/17 05:35 Labs: Laboratory Results - last 24 hr 11/15/17 11/15/17 11/16/17 19:36 21:13 05:35 WBC RBC Hgb Hct MCV MCH MCHC RDW Plt Count MPV Neut % (Auto) Lymph % (Auto) [place] % (Auto) Eos % (Auto) Baso % (Auto) Neut # (Auto) Lymph # (Auto) [place] # (Auto) Eos # (Auto) Baso # (Auto) Retic Count Sodium 135 Potassium 4.4 Chloride 103 Carbon Dioxide 23 Anion Gap 13 BUN 23 H Creatinine 1.1 Est GFR ( Amer) > 60 Est GFR (Non-Af Amer) > 60 POC Glucose (mg/dL) 173 H Random Glucose 141 H Hemoglobin A1c Calcium 8.4 Iron TIBC % Saturation Ferritin Troponin I 0.0210 0.0230 Triglycerides 64 D Cholesterol 83 LDL Cholesterol Direct < 30 HDL Cholesterol 24 L Vitamin B12 TSH 3rd Generation 11/16/17 11/16/17 11/16/17 05:35 05:35 05:35 WBC 13.5 H RBC 3.27 L Hgb 9.9 L Hct 31.1 L MCV 95.2 H MCH 30.4 MCHC 31.9 L RDW 19.6 H Plt Count 167 MPV 8.8 Neut % (Auto) 79.4 H Lymph % (Auto) 10.0 L [place] % (Auto) 9.7 Eos % (Auto) 0.6 Baso % (Auto) 0.3 Neut # (Auto) 10.7 H Lymph # (Auto) 1.4 [place] # (Auto) 1.3 H Eos # (Auto) 0.1 Baso # (Auto) 0.0 Retic Count Sodium Potassium Chloride Carbon Dioxide Anion Gap BUN Creatinine Est GFR ( Amer) Est GFR (Non-Af Amer) POC Glucose (mg/dL) 145 H Random Glucose Hemoglobin A1c 5.5 Calcium Iron TIBC % Saturation Ferritin Troponin I Triglycerides Cholesterol LDL Cholesterol Direct HDL Cholesterol Vitamin B12 TSH 3rd Generation 11/16/17 11/16/17 11/16/17 10:10 10:10 11:03 WBC RBC Hgb Hct MCV MCH MCHC RDW Plt Count MPV Neut % (Auto) Lymph % (Auto) [place] % (Auto) Eos % (Auto) Baso % (Auto) Neut # (Auto) Lymph # (Auto) [place] # (Auto) Eos # (Auto) Baso # (Auto) Retic Count 1.2 Sodium Potassium Chloride Carbon Dioxide Anion Gap BUN Creatinine Est GFR ( Amer) Est GFR (Non-Af Amer) POC Glucose (mg/dL) 183 H Random Glucose Hemoglobin A1c Calcium Iron TIBC % Saturation Ferritin 1220.0 H Troponin I Triglycerides Cholesterol LDL Cholesterol Direct HDL Cholesterol Vitamin B12 985 H TSH 3rd Generation 11/16/17 11/16/17 11:23 11:23 WBC RBC Hgb Hct MCV MCH MCHC RDW Plt Count MPV Neut % (Auto) Lymph % (Auto) [place] % (Auto) Eos % (Auto) Baso % (Auto) Neut # (Auto) Lymph # (Auto) [place] # (Auto) Eos # (Auto) Baso # (Auto) Retic Count Sodium Potassium Chloride Carbon Dioxide Anion Gap BUN Creatinine Est GFR ( Amer) Est GFR (Non-Af Amer) POC Glucose (mg/dL) Random Glucose Hemoglobin A1c Calcium Iron 17 L TIBC 187 L % Saturation 9 L Ferritin Troponin I Triglycerides 63 Cholesterol 83 LDL Cholesterol Direct < 30 HDL Cholesterol 24 L Vitamin B12 TSH 3rd Generation 1.60 Assessment & Plan (1) Anemia, chronic disease Status: Acute (2) Chest pain Status: Acute Priority: High (3) Sternal wound infection Status: Acute (4) Sternal wound infection Status: Acute (5) S/P CABG (coronary artery bypass graft) Status: Acute (6) S/P AVR (aortic valve replacement) Status: Acute (7) Pacemaker Status: Acute (8) Sepsis Status: Acute - Assessment and Plan (Free Text) Assessment: 82 YO MALE WITH SEPSIS/ BACTEREMIA FROM STERNOTOMY SITE INFECTION MAY NEED DEBRIDEMENT OF WOUND AND GEORGE TO R/O AV ENDOCARDITIS AND OR PPM LEAD INFECTION CONT IV ANTIBIOTICS , WOUND CARE
--- NOTE | 2017-11-16 16:04 | CP.PCM.DIS ---
Provider - Provider Date of Admission: 11/15/17 13:47 Attending physician: Alexei Cabrera MD Primary care physician: Dr. Macdonald Consults: cardiology consult ID consult Time Spent in preparation of Discharge (in minutes): 15 Hospital Course - Lab Results Lab Results: Micro Results 11/15/17 10:48 Blood-Venous S.aureus & Coag-Neg Staph PNA FISH - Final 11/15/17 10:48 Blood-Venous Blood Culture - Preliminary Gram Pos Cocci In Clusters 11/15/17 10:48 Blood-Venous Gram Stain - Final 11/15/17 15:14 Chest Gram Stain - Final 11/15/17 15:14 Chest Wound Culture - Preliminary Staphylococcus Aureus 11/15/17 11:18 Blood-Venous Blood Culture - Preliminary Gram Pos Cocci In Clusters 11/15/17 11:18 Blood-Venous Gram Stain - Final Most Recent Lab Values WBC 13.5 K/uL (4.8-10.8) H 11/16/17 05:35 RBC 3.27 Mil/uL (4.40-5.90) L 11/16/17 05:35 Hgb 9.9 g/dL (12.0-18.0) L 11/16/17 05:35 Hct 31.1 % (35.0-51.0) L 11/16/17 05:35 MCV 95.2 fl (80.0-94.0) H 11/16/17 05:35 MCH 30.4 pg (27.0-31.0) 11/16/17 05:35 MCHC 31.9 g/dL (33.0-37.0) L 11/16/17 05:35 RDW 19.6 % (11.5-14.5) H 11/16/17 05:35 Plt Count 167 K/uL (130-400) 11/16/17 05:35 MPV 8.8 fl (7.2-11.7) 11/16/17 05:35 Neut % (Auto) 79.4 % (50.0-75.0) H 11/16/17 05:35 Lymph % (Auto) 10.0 % (20.0-40.0) L 11/16/17 05:35 [place] % (Auto) 9.7 % (0.0-10.0) 11/16/17 05:35 Eos % (Auto) 0.6 % (0.0-4.0) 11/16/17 05:35 Baso % (Auto) 0.3 % (0.0-2.0) 11/16/17 05:35 Neut # (Auto) 10.7 K/uL (1.8-7.0) H 11/16/17 05:35 Lymph # (Auto) 1.4 K/uL (1.0-4.3) 11/16/17 05:35 [place] # (Auto) 1.3 K/uL (0.0-0.8) H 11/16/17 05:35 Eos # (Auto) 0.1 K/uL (0.0-0.7) 11/16/17 05:35 Baso # (Auto) 0.0 K/uL (0.0-0.2) 11/16/17 05:35 Retic Count 1.2 % (0.5-1.5) 11/16/17 10:10 PT 18.4 Seconds (9.8-13.1) H 11/15/17 10:45 INR 1.6 (0.9-1.2) H 11/15/17 10:45 APTT 30.6 Seconds (25.6-37.1) 11/15/17 10:45 Sodium 135 mmol/l (132-148) 11/16/17 05:35 Potassium 4.4 MMOL/L (3.6-5.0) 11/16/17 05:35 Chloride 103 mmol/L (98-107) 11/16/17 05:35 Carbon Dioxide 23 mmol/L (22-30) 11/16/17 05:35 Anion Gap 13 (10-20) 11/16/17 05:35 BUN 23 mg/dl (9-20) H 11/16/17 05:35 Creatinine 1.1 mg/dl (0.8-1.5) 11/16/17 05:35 Est GFR ( Amer) > 60 11/16/17 05:35 Est GFR (Non-Af Amer) > 60 11/16/17 05:35 POC Glucose (mg/dL) 183 mg/dL (65-110) H 11/16/17 11:03 Random Glucose 141 mg/dL (75-110) H 11/16/17 05:35 Hemoglobin A1c 5.5 % (4.2-6.5) 11/16/17 05:35 Calcium 8.4 mg/dL (8.4-10.2) 11/16/17 05:35 Iron 17 ug/dL (49-181) L 11/16/17 11:23 TIBC 187 ug/dL (250-450) L 11/16/17 11:23 % Saturation 9 % (20-55) L 11/16/17 11:23 Ferritin 1220.0 ng/Ml (17.9-464) H 11/16/17 10:10 Total Bilirubin 0.9 mg/dl (0.2-1.3) 11/15/17 10:38 AST 130 U/L (17-59) H D 11/15/17 10:38 ALT 106 U/L (21-72) H D 11/15/17 10:38 Alkaline Phosphatase 139 U/L (38-126) H 11/15/17 10:38 Troponin I 0.0230 ng/mL (0.00-0.120) 11/16/17 05:35 Total Protein 6.6 G/DL (6.3-8.2) 11/15/17 10:38 Albumin 3.0 g/dL (3.5-5.0) L D 11/15/17 10:38 Globulin 3.6 gm/dL (2.2-3.9) 11/15/17 10:38 Albumin/Globulin Ratio 0.8 (1.0-2.1) L 11/15/17 10:38 Triglycerides 63 mg/DL (0-149) 11/16/17 11:23 Cholesterol 83 mg/dL (0-199) 11/16/17 11:23 LDL Cholesterol Direct < 30 mg/dL (0-129) 11/16/17 11:23 HDL Cholesterol 24 MG/DL (30-70) L 11/16/17 11:23 Vitamin B12 985 pg/mL (239-931) H 11/16/17 10:10 TSH 3rd Generation 1.60 mIU/ML (0.46-4.68) 11/16/17 11:23 - Hospital Course Hospital Course: 82 yo male with history of CAD, HTN, HLD, DM2, Anxiety and Gastric Ulcer had recent CABG done at [facility] 2months ago. Surgical wound has been healing well until 2 days ago when and patient noted redness and tenderness on the upper border of mid-sternal surgical wound followed with serous drainage. Patient also complained of mid-sternal pain radiating to both shoulders and arms and back. Denied fever but admitted having chills. Also denied SOB, nausea or vomiting. Patient admitted for Infected surgical wound , with concern for endocarditisor pacemaker infection ,started on Vanco IV and cultures were sent. Both wound and blood cultures were reported positive for gram positive cocci in clusters.cardiology and Id were consulted Ptaient to be transferred to [facility] under the care of his cardiothoracic team for evaluation of surgical wound infection for possible debridment. 1. Infected Surgical Wound with bacteremia wound and blood cx positive for gram positive cocci in clusters Continue Vancomycin 1gm IV q 12hrs Echo showed no vegetations ID and cardiology consult appreciated Ct chest showed no collection Will transfer patient to [facility] where his primary surgical team is located 2. CAD/ s/p CABG continue ASA, statin and BB 3. HTN BP labile continue Cardizem and Metoprolol 4. DM2 BS relatively controlled without medication accuchek ACHS with low Lispro coverage HgA1C 5. Anemia of chronic disease Hgb 9.9 send anemia work up 6. Paroxysmal Afib back in SR Continue Amiodarone, cardizem and eliquis check TSH 7. Transaminitis LFT-s mildly elevated possible medication side effect ? monitor for now 8. DVt prophylaxis patient on Eliquis Discharge Exam - Head Exam Head Exam: ATRAUMATIC, NORMOCEPHALIC - Eye Exam Eye Exam: EOMI, Normal appearance, PERRL - ENT Exam ENT Exam: Mucous Membranes Moist, Normal Exam - Neck Exam Neck exam: Full Rom, Normal Inspection - Respiratory Exam Respiratory Exam: Decreased Breath Sounds (bibasilar), Clear to PA & Lateral, NORMAL BREATHING PATTERN. absent: Rhonchi, Wheezes, Respiratory Distress - Cardiovascular Exam Cardiovascular Exam: REGULAR RHYTHM, RRR, +S1, +S2. absent: JVD - GI/Abdominal Exam GI & Abdominal Exam: Normal Bowel Sounds, Soft. absent: Distended, Guarding, Rebound, Tenderness - Rectal Exam Rectal Exam: Deferred - Extremities Exam Extremities exam: normal capillary refill, normal inspection - Back Exam Back exam: NORMAL INSPECTION - Neurological Exam Neurological exam: Alert, CN II-XII Intact, Oriented x3 - Psychiatric Exam Psychiatric exam: Normal Affect - Skin Skin Exam: Dry, Warm Additional comments: mid strenal surgical incision with erythema an open wound with no drainage Discharge Plan - Discharge Medications Prescriptions: Vancomycin 1 GM [Vancomycin 1GM in Normal Saline Addvantage] 1 gm IVPB Q12 #30 bag - Follow Up Plan Condition: STABLE Disposition: Trans to Other Acute Care Hosp Patient education suggested?: Yes Instructions: Wound Incision and Drainage (DC) Referrals: Adithya Macdonald MD [Family Provider] -
[2017-11-16 16:31] VITALS: BP 158/61; RESP 16; TEMP 99.1
[2017-11-19 17:05] VITALS: O2SAT 100
[2017-11-21] MEDS ORDERED: Epoetin Alfa 40000 UNIT/ml Inj SC SCH (16:05)
== END 2017-11-16 19:10 | disposition short-term general hospital (02) | DRG 863 ==
LOC: H.ER 09:01 → H.ERHOLD 13:47 → H.TEL 16:13
DX: T81.4XXA Infection following a procedure, initial encounter (principal); R78.81 Bacteremia; B95.61 Methicillin susceptible Staphylococcus aureus infection as the cause of diseases classified elsewhere; I48.0 Paroxysmal atrial fibrillation; I25.10 Atherosclerotic heart disease of native coronary artery without angina pectoris; I10 Essential (primary) hypertension; E78.5 Hyperlipidemia, unspecified; E78.00 Pure hypercholesterolemia, unspecified; E11.9 Type 2 diabetes mellitus without complications; D63.8 Anemia in other chronic diseases classified elsewhere; F41.9 Anxiety disorder, unspecified; K29.70 Gastritis, unspecified, without bleeding; I25.2 Old myocardial infarction; Z95.4 Presence of other heart-valve replacement; Z95.0 Presence of cardiac pacemaker; Z95.1 Presence of aortocoronary bypass graft; Z87.891 Personal history of nicotine dependence; Z87.11 Personal history of peptic ulcer disease; Z79.01 Long term (current) use of anticoagulants; Z79.84 Long term (current) use of oral hypoglycemic drugs; Z79.82 Long term (current) use of aspirin; Z90.49 Acquired absence of other specified parts of digestive tract